=== PATIENT | male | born 2000 | race Caucasian/White ===

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

== ENCOUNTER 2024-01-14 09:41 | Emergency (ER) | payer MEDICAID ==
[~2024-01-14] VITALS: Ht 182.9 cm; Wt 80.0 kg
[2024-01-14 09:50] VITALS: TEMP 98.2
[2024-01-14] MEDS ORDERED: Ketorolac 30 MG/ML VIAL IM ONE (10:15)
[2024-01-14] MEDS ORDERED: NORCO 325 MG-51 TAB PO (11:19)
[2024-01-14 11:29] VITALS: BP 133/90; PULSE 76
== END 2024-01-14 11:28 | disposition home or self-care (01) ==
LOC: COL.ER 09:41
DX: S20.213A Contusion of bilateral front wall of thorax, initial encounter (principal); W01.198A Fall on same level from slipping, tripping and stumbling with subsequent striking against other object, initial encounter; Y92.89 Other specified places as the place of occurrence of the external cause; Y99.0 Civilian activity done for income or pay
CPT/HCPCS: J1885

== ENCOUNTER 2024-03-05 14:40 | Emergency (ER) | payer MEDICAID ==
[~2024-03-05] VITALS: Ht 182.9 cm; Wt 84.1 kg
[~2024-03-05 14:40] MED LIST changes: +NORCO 325 MG-51 TAB PO
[2024-03-05 14:47] VITALS: BP 122/60; TEMP 98.3
[2024-03-05 16:17] LABS: COLLECTION METHOD CLEAN CATCH
[2024-03-05 16:24] LABS: PH 5.5 (5.0-8.5); URINE APPEARANCE CLEAR (CLEAR/HAZY); URINE BLOOD 2+ (NEGATIVE); URINE COLOR YELLOW (YELLOW); URINE GLUCOSE NEGATIVE (NEGATIVE); URINE KETONE NEGATIVE (NEGATIVE); URINE NITRATE NEGATIVE (NEGATIVE); URINE PROTEIN(semi-quant) NEGATIVE (NEGATIVE); URINE UROBILINOGEN 0.2 E.U/dL (0.2-1.0)
[2024-03-05 17:18] VITALS: PULSE 65
== END 2024-03-05 17:19 | disposition home or self-care (01) ==
LOC: COL.ER 14:40
PROVIDERS: Physician Assistant
DX: R31.9 Hematuria, unspecified (principal)